=== PATIENT | female | born 1985 | race Caucasian/White ===

== ENCOUNTER 2017-07-06 20:30 | Day surgery (SDC) | payer OTHER ==
[~2017-07-06] VITALS: Ht 162.6 cm; Wt 87.5 kg
[~2017-07-06 20:30] MED LIST: IBUP200T48 PO; PREN1TAB56 PO
[2017-07-06] MEDS ORDERED: ACETAMINOPHEN 325 MG TABLET PO ONE (21:00)
[2017-07-06] MEDS ORDERED: ACETAMINOPHEN 325 MG TABLET ONE (21:02)
[2017-07-06 21:23] LABS: HEMATOCRIT 41.1 % (34.6-47.8); HEMOGLOBIN 13.7 g/dL (11.7-16.4); WHITE BLOOD COUNT 13.9 x10^3/uL (3.4-10)
[2017-07-06 21:34] LABS: ASPARTATE AMINO TRANSFERASE 18 U/L (15-37); BLOOD UREA NITROGEN 6 mg/dL (7-18)
[2017-07-06] MEDS ORDERED: SODIUM CHLORIDE FLUSH 10ML SYR IVF ONE (22:30)
[2017-07-06] MEDS ORDERED: ONDANSETRON 2MG/ML, 2ML IVPush ONE (22:30)
[2017-07-06] MEDS ORDERED: SODIUM CHLORIDE 0.9% 1,000ML IVBOLUS ONE (22:30)
[2017-07-06] MEDS ORDERED: MORPHINE SULFATE 4 MG/ML, 1ML IVPush PRN (23:00)
[2017-07-06] MEDS ORDERED: ONDANSETRON 2MG/ML, 2ML ONE (23:01)
[2017-07-06] MEDS ORDERED: MORPHINE SULFATE 4 MG/ML, 1ML ONE (23:01)
[2017-07-07] MEDS ORDERED: SODIUM CHLORIDE 0.9% 1,000ML IVBOLUS ONE (03:00)
[2017-07-07] MEDS ORDERED: PIPERACILLIN/TAZO/PMX 3.375GM 50 ML IVPB ONE (03:00)
[2017-07-07] MEDS ORDERED: SODIUM CHLORIDE 0.9% 1,000 ML IV ONE (03:02)
[2017-07-07] MEDS ORDERED: PIPERACILLIN/TAZO/PMX 3.375GM 50 ML ONE (03:16)
[2017-07-07] MEDS ORDERED: MORPHINE SULFATE 4 MG/ML, 1ML IVPush PRN (03:30)
[2017-07-07 08:32] VITALS: BP 115/70
[2017-07-07] MEDS: ONDANSETRON 2MG/ML, 2ML IVPush PRN ×3 (08:47→19:50)
[2017-07-07] MEDS: MORPHINE SULFATE 4 MG/ML, 1ML IVPush PRN ×2 (08:48→16:40)
[2017-07-07] MEDS ORDERED: BUPIVACAINE/PF-EPI 0.5% 1:200K ONE (09:16)
[2017-07-07] MEDS ORDERED: MIDAZOLAM 1 MG/ML, 2ML ONE (11:22)
[2017-07-07] MEDS ORDERED: FENTANYL PF 250 MCG/5ML ONE (11:22)
[2017-07-07] MEDS ORDERED: ONDANSETRON 2MG/ML, 2ML ONE ×2 (12:07→13:47)
[2017-07-07] MEDS ORDERED: CEFAZOLIN 1,000 MG ONE (12:07)
[2017-07-07] MEDS ORDERED: DEXAMETHASONE 4 MG/ML, 1ML ONE (12:07)
[2017-07-07] MEDS ORDERED: SUCCINYLCHOLINE 20 MG/ML, 10ML ONE (12:07)
[2017-07-07] MEDS ORDERED: PROPOFOL 10 MG/ML, 20ML ONE (12:07)
[2017-07-07] MEDS ORDERED: PROMETHAZINE 25 MG/ML, 1ML IV PRN (12:30)
[2017-07-07] MEDS ORDERED: MEPERIDINE/PF 25MG/0.5ML IVPush PRN (12:30)
[2017-07-07] MEDS ORDERED: HYDROmorphone 1 MG/ML, 1ML IV PRN (12:30)
[2017-07-07] MEDS ORDERED: ONDANSETRON 2MG/ML, 2ML IVPush PRN (12:30)
[2017-07-07] MEDS ORDERED: MIDAZOLAM 1 MG/ML, 2ML IV PRN (12:30)
[2017-07-07] MEDS ORDERED: FENTANYL PF 100 MCG/2ML IV PRN (12:30)
[2017-07-07] MEDS ORDERED: OXYcodone 5 MG/5 ML ORAL.SOL UDC PO PRN (12:30)
[2017-07-07] MEDS ORDERED: HYDROcodone/APAP 5/325 TABLET PO PRN (13:00)
[2017-07-07] MEDS ORDERED: FENTANYL PF 100 MCG/2ML ONE (13:02)
[2017-07-07] MEDS ORDERED: OXYcodone 5 MG/5 ML ORAL.SOL UDC ONE (13:02)
[2017-07-07] MEDS ORDERED: HYDR-3240 PO (17:16)
[2017-07-07 20:33] VITALS: BP 107/66
[2017-07-07 22:18] VITALS: BP 134/85
== END 2017-07-07 22:30 | disposition home or self-care (01) ==
LOC: ED 23:13 → UNDOADMIN 07-07 03:02 → SDC 07-07 03:02 → EDIP 07-07 03:02 → 4NOR 07-07 03:51 → EDIP 07-07 03:51 → UNDODISIN 07-07 22:30 → SDC 07-07 22:30
DX: K80.12 Calculus of gallbladder with acute and chronic cholecystitis without obstruction (principal); E89.0 Postprocedural hypothyroidism
CPT/HCPCS: 36415; 74177; 76700; 80053; 81001; 83605; 83690; 84145; 84703; 85025; 87040; 87086; 88304; 96361; 96374; 96375; J0690; J1100; J2250; J2405; J2543; J2704; J3010; J0330; J7030